=== PATIENT | female | born 2005 | race Caucasian/White ===

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

== ENCOUNTER → 2024-05-17 | Outpatient (CLI) | payer BC ==
--- NOTE | 2024-05-17 19:29 | MR ---
EXAMINATION TYPE: MR knee LT wo con DATE OF EXAM: 05/17/2024 COMPARISON: 05/12/2023 HISTORY: Left knee pain x 1 year, no trauma. TECHNIQUE: Multiplanar, multisequence imaging of the left knee is performed without IV contrast. FINDINGS: There is no change in the 18 to 19 mm well-circumscribed sharply marginated cortical lesion in the di stal left femoral metaphysis. It is hypointense on T1-weighted images and hyperintense on T2-weighted images centrally. As stated on the prior study and given its stability since 05/12/2023, this most li yomaira represents a benign lesion but correlation with plain radiographs is recommended. There is no co rtical disruption or periosteal reaction. There is no meniscal or ligamentous injury. The articular cartilages in all 3 compartments are well preserved.. There is physiologic fluid within the joint space. There is a persistent small stable Cardenas's cyst. The patellar and quadriceps tendons are intact. The anterior fat pads are unremarkable. IMPRESSION: 1. Stable cortical distal left femoral metaphyseal lesion as described above. It is most likely benig n but correlation with plain radiographs is recommended for confirmation and stable. 2. Stable small Cardenas's cyst. 3. no ligamentous or meniscal injury. 4. No abnormality of the articular cartilages. No osteochondral defects.
== END | disposition home or self-care (01) ==
LOC: RADMRIMAIN 09:44
PROVIDERS: ATTEND Orthopaedic Surgery
DX: M71.22 Synovial cyst of popliteal space [Baker], left knee (principal); M89.8X5 Other specified disorders of bone, thigh

== ENCOUNTER → 2024-09-22 | Outpatient (CLI) | payer BC ==
[2024-09-22 18:07] LABS: Basophils # (A) 0.06 X 10*3/uL (0.00-0.10); Basophils % (A) 0.8 %; Eosinophils # (A) 0.16 X 10*3/uL (0.04-0.35); Eosinophils % (A) 2.2 %; HCT 39.5 % (37.2-46.3); HGB 12.6 g/dL (12.0-15.0); Lymphocytes # (A) 1.07 X 10*3/uL (0.90-5.00); Lymphocytes % (A) 14.5 %; MCH 27.6 pg (27.0-32.0); MCHC 31.9 g/dL (32.0-37.0); MCV 86.6 FL (80.0-97.0); Mean Platelet Volume 9.4 FL (9.5-12.2); Monocytes # (A) 0.44 X 10*3/uL (0.20-1.00); NRBC Per 100 WBC 0 X 10*3/uL (0.00-0.01); Neutrophils # (A) 5.62 X 10*3/uL (1.80-7.70); Neutrophils % (A) 76.2 %; Platelet Count 334 X 10*3/uL (140-440); RBC 4.56 X 10*6/uL (4.10-5.20); RDW 12.8 % (11.5-14.5); WBC 7.37 X 10*3/uL (4.50-10.00)
[2024-09-22 18:20] LABS: BUN/Creat Ratio 17.83 Ratio (12.00-20.00); Blood Urea Nitrogen 10.7 mg/dL (9.0-27.0); Chloride 104 mmol/L (96-109); Glucose 87 mg/dL (70-110); Potassium 4.6 mmol/L (3.5-5.5); Sodium 137 mmol/L (135-145)
[2024-09-22 18:21] LABS: ALT 24 U/L (8-44); AST 24 U/L (13-35); Albumin 4.3 g/dL (3.8-4.9); Albumin/Globulin Ratio 1.79 Ratio (1.60-3.17); Alkaline Phosphatase 55 U/L (41-126); Calcium 9.5 mg/dL (8.7-10.3); Carbon Dioxide 23.1 mmol/L (21.6-31.8); Globulin 2.4 g/dL (1.6-3.3); Total Bilirubin 0.2 mg/dL (0.3-1.2); Total Protein 6.7 g/dL (6.2-8.2)
== END | disposition home or self-care (01) ==
LOC: LABWHC1 12:37
PROVIDERS: ATTEND Nurse Practitioner Family
DX: R10.9 Unspecified abdominal pain (principal)
CPT/HCPCS: 36415; 80053; 85025

== ENCOUNTER 2025-06-22 12:37 | Day surgery (SDC) | payer BC ==
[2025-06-21 12:18] VITALS: BMI 19.7
[2025-06-22] MEDS: IV FLUID CONTINUATION 1,000 ML IV ONE (13:22)
[2025-06-22] MEDS: LACTATED RINGERS 1,000 ML IV SCH (13:38)
[2025-06-22 13:42] VITALS: TEMP 97.9
[2025-06-22] MEDS ORDERED: PROPOFOL 10 MG/ML 20 ML VIAL IV ONE (14:05)
[2025-06-22] MEDS ORDERED: LIDOCAINE 1% INJ 10MG/ML (20 ML MDV) ONE (14:05)
--- NOTE | 2025-06-22 14:17 | P.PCN ---
Date of Procedure: 06/22/25 Procedure(s) Performed: BRIEF HISTORY: Patient is a 19-year-old, pleasant, white female scheduled for an upper endoscopy as a part of evaluation intermittent episodes of nausea vomiting for the last 6 months duration.. She does complain of epigastric and left upper quadrant abdominal pain. PROCEDURE PERFORMED: Esophagogastroduodenoscopy with biopsy. PREOPERATIVE DIAGNOSIS: Intermittent episodes of nausea vomiting of 6 months duration. IV sedation per anesthesia. PROCEDURE: After informed consent was obtained, the patient was brought into the endoscopy unit. IV conscious sedation was administered by Anesthesia under continuous monitoring. Initially the Olympus GIF-140 video endoscope was inse rted into the mouth. Esophagus intubated without any difficulty. It was gradually advanced into the stomach and duodenum and carefully examined. The bulb and the second part of the duodenum appeared normal. The scope at this time was withdrawn to the stomach, adequately insufflated with air, and upon careful examination, mucosa of the antrum had mild gastritis and biopsies were done from this area. Mucosa of the, body, cardia and the fundus appeared normal. The scope was then withdrawn into the esophagus. Small hiatal hernia noted. The GE junction was located at 39 cm from the incisors. The mucosa in the distal esophagus appeared slightly inflamed and thickened with superficial erosions and biopsies were done from this area to evaluate for reflux esophagitis versus eosinophilic esophagitis. Rest of the esophagus appeared normal and the patient tolerated the procedure well. IMPRESSION: 1. Thickened mid and distal esophageal folds with some erosions in the distal esophagus suspicious for GERD/eosinophilic esophagitis status post multiple biopsies. 2. Small hiatal hernia 3. Mild antral gastritis. RECOMMENDATIONS: The findings of this examination were discussed with the pat ient as well as her family. She was advised to follow-up with the biopsy results. Trial of Prilosec 20 mg daily and follow antireflux measures. Follow- up in office in 3 weeks
[2025-06-22 14:37] VITALS: RESP 20
[2025-06-22 14:41] VITALS: BP 98/66; PULSE 60
== END 2025-06-22 14:56 | disposition home or self-care (01) ==
LOC: ORWHC2ENDO 12:37
PROVIDERS: ATTEND Internal Medicine Gastroenterology
DX: K44.9 Diaphragmatic hernia without obstruction or gangrene
CPT/HCPCS: 43239; 81025; 88305